=== PATIENT | male | born 1945 | race Caucasian/White ===

== ENCOUNTER → 2020-02-06 10:00 | Outpatient (CLI) | payer MEDICARE, SELFPAY ==
--- NOTE | ~2020-02-06 | XR_ITS ---
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 This may be a source of chronic low back pain. The pubic symphysis and sacroiliac joints are intact. There is moderate osteoarthritis including degenerative spurring at the right hip joint. No fracture, dislocation, avascular necrosis or bone destruction is evident. 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
== END ==
PROVIDERS: PCP Family Medicine; Visit Provider Family Medicine
DX: M16.11 Unilateral primary osteoarthritis, right hip (principal)
CPT/HCPCS: 73502